=== PATIENT | female | born 1945 | race Caucasian/White ===

== ENCOUNTER 2018-08-19 10:31 | Emergency (ER) | payer MEDICARE ==
[~2018-08-19] VITALS: Ht 157.5 cm; Wt 62.0 kg
[2018-08-19] MEDS ORDERED: ERYTHROMYCIN O3.5 GM OD ×2 (11:21→11:23)
[2018-08-19 11:30] VITALS: BP 144/80
== END 2018-08-19 11:30 | disposition home or self-care (01) ==
LOC: ED 10:31
DX: S05.01XA Injury of conjunctiva and corneal abrasion without foreign body, right eye, initial encounter (principal); X58.XXXA Exposure to other specified factors, initial encounter; Y92.009 Unspecified place in unspecified non-institutional (private) residence as the place of occurrence of the external cause

== ENCOUNTER → 2018-11-09 | Outpatient (REF) | payer MEDICARE ==
[~2018-11-09] MED LIST: ERYTHROMYCIN O3.5 GM OD
== END | disposition home or self-care (01) ==
LOC: LABSPEC 10:57
PROVIDERS: ATTEND Nurse Practitioner Family
DX: Z20.818 Contact with and (suspected) exposure to other bacterial communicable diseases (principal); B95.0 Streptococcus, group A, as the cause of diseases classified elsewhere

== ENCOUNTER 2018-11-22 10:36 | Outpatient (REF) | payer MEDICARE | END 2018-11-22 10:57 | disposition home or self-care (01) | LOC: INF 10:36 | PROVIDERS: ATTEND Internal Medicine | PROC: 3C1ZX8Z Irrigation of Indwelling Device using Irrigating Substance, External Approach (ICD-10-PCS; principal; 2018-11-22) | DX: Z45.2 Encounter for adjustment and management of vascular access device (principal) ==

== ENCOUNTER → 2018-11-26 | Outpatient (REF) | payer MEDICARE | END | disposition home or self-care (01) | LOC: MAMMO 11:30 | PROVIDERS: ATTEND Nurse Practitioner Family | DX: Z12.31 Encounter for screening mammogram for malignant neoplasm of breast (principal) ==

== ENCOUNTER 2019-09-19 10:58 | Emergency (ER) | payer MEDICARE ==
[~2019-09-19] VITALS: Ht 157.5 cm; Wt 63.0 kg
[2019-09-19 11:47] LABS: HEMATOCRIT 38.5 % (37.0-47.0); IMMATURE GRANULOCYTES 0.3 % (0.0-5.0); MEAN CELL VOLUME 89.3 fL CALC (80.0-100.0); MEAN CORPUSCULAR HGB 30.2 pG CALC (26.0-32.0); MEAN CORPUSCULAR HGB CONC 33.8 g/L CALC (32.0-36.0); NEUT# 6.7 thou/uL (2.00-7.15); RED BLOOD COUNT 4.31 mill/uL (4.20-5.60); RED CELL DISTRI WIDTH 12.7 % (11.5-15.5)
[2019-09-19 12:00] LABS: ALBUMIN 4.2 g/dL (3.2-5.0); ALKALINE PHOSPHATASE 44 u/l (38-126); ANION GAP 16 (6-22 (CALC)); BILIRUBIN, TOTAL 0.4 mg/dL (0.0-1.4); BUN 14 mg/dL (8-23); BUN/CREATININE RATIO 24 (12-20 (CALC)); CARBON DIOXIDE 29 mmol/l (22-30); CHLORIDE 97 mmol/l (95-108); CREATININE 0.6 mg/dL (0.5-1.0); GFR > 60 ML/MIN (>=60 (CALC)); GFR FOR AFR.AMER. > 60 ML/MIN (>=60 (CALC)); POTASSIUM 3.4 mmol/l (3.5-5.1); SGOT/AST 20 u/l (9-36); SODIUM 139 mmol/l (137-146); TOTAL PROTEIN 6.8 g/dL (6.3-8.2)
[2019-09-19] MEDS ORDERED: CYMBALTA60 MG PO (13:21)
[2019-09-19] MEDS ORDERED: LEVOTHYROXIN50 MCG PO (13:39)
[2019-09-19] MEDS ORDERED: LIPITOR10 M1 PO (13:39)
[2019-09-19] MEDS ORDERED: ROPINIROLE4 MG PO (13:40)
[2019-09-19] MEDS ORDERED: DULOXETINE HCL60 MG PO (13:41)
[2019-09-19] MEDS ORDERED: METFORMIN850 MG PO (13:41)
[2019-09-19] MEDS ORDERED: TRAMADOL HCL50 MG PO (13:41)
[2019-09-19] MEDS ORDERED: FUROSEMIDE20 MG PO (13:42)
[2019-09-19] MEDS ORDERED: ELIQUIS2.5 MG (13:43)
[2019-09-19 14:06] VITALS: BP 132/73
== END 2019-09-19 14:17 | disposition home or self-care (01) ==
LOC: ED 10:58
PROVIDERS: Family Medicine
DX: F41.9 Anxiety disorder, unspecified (principal); E11.9 Type 2 diabetes mellitus without complications; R06.02 Shortness of breath
CPT/HCPCS: J2060